=== PATIENT | female | born 1965 ===

== ENCOUNTER 2022-05-11 16:35 | Emergency (ER) | payer OTHER ==
--- NOTE | 2022-05-11 17:20 | Emergency Department Report ---
ED General Adult HPI - General Chief complaint: High BP Stated complaint: HIGH BLOOD PRESSURE Time Seen by Provider: 05/11/22 16:50 Source: patient, RN/MD (notes provided by [facility]), EMS, old records reviewed Mode of arrival: Stretcher Limitations: No Limitations - History of Present Illness Initial comments: 57-year-old female with a past medical history hypertension and diabetes presents from [facility] for treatment for possible clonidine withdrawal. Patient was admitted into [facility] yesterday after transfer from [facility]. Patient apparently has a history of chronic opioid, benzodiazepine, and clonidine issues with repeated hospital visits for hypotension. At [facility] she was experiencing withdrawal symptoms including vomiting, nausea, sleep disturbance, sweats, increased anxiety and headaches. Patient states she received Suboxone and currently feels better without any symptoms of withdrawal. She was transferred due to abnormal vital signs which included BP 203/136, pulse rate 121, respirations 20, temp nine 9.2, and satting 98% on room air as per [facility] transfer form As per [facility] medications include (a.m. meds administered around 10:30 AM) Eliquis 2.5 mg daily. Patient received 1 dose today and it was discontinued Carvedilol 6.25 mg twice daily patient received 1 dose this a.m. and it was discontinued Carvedilol has since been increased to 12.5 mg BID with first dose scheduled this evening Lantus 10 units twice daily (no dose provided today) Patient is on Ativan 1 mg taper for detox (dose received at 10:35 and 13:15) Robaxin-750mg TID one does this am provided Omeprazole daily next Patient is on several as needed. medications including but not limited to Suboxone 2 mg - 0.5 mg every 6 as needed opiate withdrawal Clonidine 0.1 mg as needed BP 160/90 Max 3 doses per day (patient received 1 dose yesterday morning at 1145 and 1 dose this morning at 10:23 AM) As needed insulin and Ativan please refer to the MAR for additional as needed medications Patient denies currently taking Eliquis or being prescribed Eliquis in the past patient denies history of PE/DVT. - Related Data Allergies Allergy/AdvReac Type Severity Reaction Status Date / Time NSAIDS (Non-Steroidal AdvReac Unknown Verified 05/11/22 16:46 Anti-Inflamma ED Review of Systems ROS: Stated complaint: HIGH BLOOD PRESSURE Other details as noted in HPI ED Physical Exam - General Limitations: No Limitations ED Course Vital Signs 05/11/22 05/11/22 05/11/22 16:44 17:23 17:58 Temperature 98.5 F Pulse Rate 120 H 119 H Respiratory 18 Rate Blood Pressure 140/80 145/69 [Left] O2 Sat by Pulse 98 99 Oximetry 05/11/22 05/11/22 05/11/22 20:10 21:53 22:29 Temperature Pulse Rate 110 H 103 H 104 H Respiratory 18 19 Rate Blood Pressure 149/71 149/83 [Left] O2 Sat by Pulse 99 95 Oximetry 05/11/22 05/11/22 23:38 23:39 Temperature Pulse Rate 110 H 82 Respiratory 20 Rate Blood Pressure 111/92 [Left] O2 Sat by Pulse 100 Oximetry - Reevaluation(s) Reevaluation #1: 05/11/22 23:20 Patient with extended ED stay. Receiving IV fluids for dehydration. Patient is a very difficult IV stick and only had a 24-gauge catheter placed with slow administration of IV fluids. She was able to tolerated p.o. hydration. Several nurses attempted IV access include IV ultrasound-guided access without success. At this time patient is starting to exhibit more signs of agitation and is requesting additional Suboxone. She was medicated with Suboxone, carvedilol, Lopressor, and Zofran. Patient denies chest pain or shortness of breath. ED Medical Decision Making - Lab Data Result diagrams: 05/11/22 17:27 05/11/22 22:36 Lab Results 05/11/22 05/11/22 05/11/22 Range/Units 17:14 17:27 17:27 WBC 7.1 (4.5-11.0) K/mm3 RBC 5.57 H (3.65-5.03) M/mm3 Hgb 15.9 H (10.1-14.3) gm/dl Hct 48.3 H (30.3-42.9) % MCV 87 (79-97) fl MCH 29 (28-32) pg MCHC 33 (30-34) % RDW 13.8 (13.2-15.2) % Plt Count 420 (140-440) K/mm3 Lymph % (Auto) 21.6 (13.4-35.0) % [place] % (Auto) 4.2 (0.0-7.3) % Eos % (Auto) 0.2 (0.0-4.3) % Baso % (Auto) 1.3 (0.0-1.8) % Lymph # (Auto) 1.5 (1.2-5.4) K/mm3 [place] # (Auto) 0.3 (0.0-0.8) K/mm3 Eos # (Auto) 0.0 (0.0-0.4) K/mm3 Baso # (Auto) 0.1 (0.0-0.1) K/mm3 Seg Neutrophils % 72.7 H (40.0-70.0) % Seg Neutrophils # 5.2 (1.8-7.7) K/mm3 PT 13.4 (12.2-14.9) Sec. INR 0.90 (0.87-1.13) Sodium (137-145) mmol/L Potassium (3.6-5.0) mmol/L Chloride (98-107) mmol/L Carbon Dioxide (22-30) mmol/L Anion Gap mmol/L BUN (7-17) mg/dL Creatinine (0.6-1.2) mg/dL Estimated GFR ml/min BUN/Creatinine Ratio % Glucose (65-100) mg/dL POC Glucose 103 (70-105) mg/dL Calcium (8.4-10.2) mg/dL Total Bilirubin (0.1-1.2) mg/dL AST (5-40) units/L ALT (7-56) units/L Alkaline Phosphatase (35-129) units/L Total Protein (6.3-8.2) g/dL Albumin (3.9-5) g/dL Albumin/Globulin Ratio % TSH (0.270-4.200) mlU/mL Free T4 (0.76-1.46) ng/dL Urine Color (Yellow) Urine Turbidity (Clear) Urine pH (5.0-7.0) Ur Specific [place] (1.003-1.030) Urine Protein (Negative) mg/dL Urine Glucose (UA) (Negative) mg/dL Urine Ketones (Negative) mg/dL Urine Blood (Negative) Urine Nitrite (Negative) Urine Bilirubin (Negative) Urine Ictotest (Negative) Urine Urobilinogen (<2.0) mg/dL Ur Leukocyte Esterase (Negative) Urine WBC (Auto) (0.0-6.0) /HPF Urine RBC (Auto) (0.0-6.0) /HPF U Epithel Cells (Auto) (0-13.0) /HPF Urine Bacteria (Auto) (Negative) /HPF Hyaline Casts /LPF Urine Mucus /HPF Urine Yeast (Budding) /HPF Urine Opiates Screen Urine Methadone Screen Ur Barbiturates Screen Ur Phencyclidine Scrn Ur Amphetamines Screen U Benzodiazepines Scrn Urine Cocaine Screen U Marijuana (THC) Screen Drugs of Abuse Note Hepatitis A IgM Ab (NonReactive) Hep Bs Antigen (Negative) Hep B Core IgM Ab (NonReactive) Hepatitis C Antibody (NonReactive) 05/11/22 05/11/22 05/11/22 Range/Units 17:27 17:28 22:36 WBC (4.5-11.0) K/mm3 RBC (3.65-5.03) M/mm3 Hgb (10.1-14.3) gm/dl Hct (30.3-42.9) % MCV (79-97) fl MCH (28-32) pg MCHC (30-34) % RDW (13.2-15.2) % Plt Count (140-440) K/mm3 Lymph % (Auto) (13.4-35.0) % [place] % (Auto) (0.0-7.3) % Eos % (Auto) (0.0-4.3) % Baso % (Auto) (0.0-1.8) % Lymph # (Auto) (1.2-5.4) K/mm3 [place] # (Auto) (0.0-0.8) K/mm3 Eos # (Auto) (0.0-0.4) K/mm3 Baso # (Auto) (0.0-0.1) K/mm3 Seg Neutrophils % (40.0-70.0) % Seg Neutrophils # (1.8-7.7) K/mm3 PT (12.2-14.9) Sec. INR (0.87-1.13) Sodium 137 (137-145) mmol/L Potassium 5.5 H 5.1 H (3.6-5.0) mmol/L Chloride 99.9 (98-107) mmol/L Carbon Dioxide 22 (22-30) mmol/L Anion Gap 21 mmol/L BUN 20 H (7-17) mg/dL Creatinine 1.4 H (0.6-1.2) mg/dL Estimated GFR 39 ml/min BUN/Creatinine Ratio 14 % Glucose 116 H (65-100) mg/dL POC Glucose (70-105) mg/dL Calcium 9.9 (8.4-10.2) mg/dL Total Bilirubin 0.40 (0.1-1.2) mg/dL AST 63 H (5-40) units/L ALT 111 H (7-56) units/L Alkaline Phosphatase 401 H (35-129) units/L Total Protein 9.1 H (6.3-8.2) g/dL Albumin 4.9 (3.9-5) g/dL Albumin/Globulin Ratio 1.2 % TSH 1.560 (0.270-4.200) mlU/mL Free T4 1.02 (0.76-1.46) ng/dL Urine Color (Yellow) Urine Turbidity (Clear) Urine pH (5.0-7.0) Ur Specific [place] (1.003-1.030) Urine Protein (Negative) mg/dL Urine Glucose (UA) (Negative) mg/dL Urine Ketones (Negative) mg/dL Urine Blood (Negative) Urine Nitrite (Negative) Urine Bilirubin (Negative) Urine Ictotest (Negative) Urine Urobilinogen (<2.0) mg/dL Ur Leukocyte Esterase (Negative) Urine WBC (Auto) (0.0-6.0) /HPF Urine RBC (Auto) (0.0-6.0) /HPF U Epithel Cells (Auto) (0-13.0) /HPF Urine Bacteria (Auto) (Negative) /HPF Hyaline Casts /LPF Urine Mucus /HPF Urine Yeast (Budding) /HPF Urine Opiates Screen Urine Methadone Screen Ur Barbiturates Screen Ur Phencyclidine Scrn Ur Amphetamines Screen U Benzodiazepines Scrn Urine Cocaine Screen U Marijuana (THC) Screen Drugs of Abuse Note Hepatitis A IgM Ab (NonReactive) Hep Bs Antigen (Negative) Hep B Core IgM Ab (NonReactive) Hepatitis C Antibody (NonReactive) 05/11/22 05/11/22 05/11/22 Range/Units Unknown Unknown Unknown WBC (4.5-11.0) K/mm3 RBC (3.65-5.03) M/mm3 Hgb (10.1-14.3) gm/dl Hct (30.3-42.9) % MCV (79-97) fl MCH (28-32) pg MCHC (30-34) % RDW (13.2-15.2) % Plt Count (140-440) K/mm3 Lymph % (Auto) (13.4-35.0) % [place] % (Auto) (0.0-7.3) % Eos % (Auto) (0.0-4.3) % Baso % (Auto) (0.0-1.8) % Lymph # (Auto) (1.2-5.4) K/mm3 [place] # (Auto) (0.0-0.8) K/mm3 Eos # (Auto) (0.0-0.4) K/mm3 Baso # (Auto) (0.0-0.1) K/mm3 Seg Neutrophils % (40.0-70.0) % Seg Neutrophils # (1.8-7.7) K/mm3 PT (12.2-14.9) Sec. INR (0.87-1.13) Sodium (137-145) mmol/L Potassium (3.6-5.0) mmol/L Chloride (98-107) mmol/L Carbon Dioxide (22-30) mmol/L Anion Gap mmol/L BUN (7-17) mg/dL Creatinine (0.6-1.2) mg/dL Estimated GFR ml/min BUN/Creatinine Ratio % Glucose (65-100) mg/dL POC Glucose (70-105) mg/dL Calcium (8.4-10.2) mg/dL Total Bilirubin (0.1-1.2) mg/dL AST (5-40) units/L ALT (7-56) units/L Alkaline Phosphatase (35-129) units/L Total Protein (6.3-8.2) g/dL Albumin (3.9-5) g/dL Albumin/Globulin Ratio % TSH (0.270-4.200) mlU/mL Free T4 (0.76-1.46) ng/dL Urine Color [place] (Yellow) Urine Turbidity Cloudy (Clear) Urine pH 5.0 (5.0-7.0) Ur Specific [place] 1.034 H (1.003-1.030) Urine Protein 100 mg/dl (Negative) mg/dL Urine Glucose (UA) Neg (Negative) mg/dL Urine Ketones 20 (Negative) mg/dL Urine Blood Neg (Negative) Urine Nitrite Neg (Negative) Urine Bilirubin Mod (Negative) Urine Ictotest Not confirmed (Negative) Urine Urobilinogen 4.0 (<2.0) mg/dL Ur Leukocyte Esterase Neg (Negative) Urine WBC (Auto) 6.0 (0.0-6.0) /HPF Urine RBC (Auto) 3.0 (0.0-6.0) /HPF U Epithel Cells (Auto) 24.0 H (0-13.0) /HPF Urine Bacteria (Auto) 1+ (Negative) /HPF Hyaline Casts 2 /LPF Urine Mucus 1+ /HPF Urine Yeast (Budding) Few /HPF Urine Opiates Screen Presumptive negative Urine Methadone Screen Presumptive negative Ur Barbiturates Screen Presumptive negative Ur Phencyclidine Scrn Presumptive negative Ur Amphetamines Screen Presumptive negative U Benzodiazepines Scrn Presumptive positive Urine Cocaine Screen Presumptive negative U Marijuana (THC) Screen Presumptive negative Drugs of Abuse Note Disclamer Hepatitis A IgM Ab Non-reactive (NonReactive) Hep Bs Antigen Non-reactive (Negative) Hep B Core IgM Ab Non-reactive (NonReactive) Hepatitis C Antibody Non-reactive (NonReactive) - EKG Data -: EKG Interpreted by Ct EKG shows normal: sinus rhythm, ST-T waves (no stemi) Rate: tachycardia (114) - EKG Data When compared to previous EKG there are: previous EKG unavailable - Radiology Data Radiology results: report reviewed CHEST 2 VIEWS INDICATION / CLINICAL INFORMATION: htn tachycardia. FINDINGS: SUPPORT DEVICES: None. HEART / MEDIASTINUM: No significant abnormality. LUNGS / PLEURA: No significant pulmonary or pleural abnormality. No pneumothorax. ADDITIONAL FINDINGS: No significant additional findings. IMPRESSION: 1. No acute findings. Abdominal ultrasound limited INDICATION: Elevated LFTs FINDINGS: The liver appears heterogeneous. The spleen is enlarged and 12 cm craniocaudal. Within the spleen there is partial visualization of a heterogeneous structure measuring 5.6 x 7.4 cm. The aorta appears normal in size. There is no intraextra hepatic biliary dilatation. Both kidneys are grossly unremarkable. The pancreas is poorly identified from overlying bowel gas IMPRESSION: Splenomegaly with evidence of adjacent 7 x 6 cm lesion. This mass is ultimately nonspecific and CT of the abdomen and pelvis with IV contrast is suggested for further evaluation. CT ABDOMEN AND PELVIS WITHOUT CONTRAST INDICATION / CLINICAL INFORMATION: elevated lft, possible splenic mass. TECHNIQUE: Axial CT images were obtained through the abdomen and pelvis without IV contrast. All CT scans at this location are performed using CT dose reduction for ALARA by means of automated exposure control. COMPARISON: Abdominal ultrasound dated 05/11/2022 FINDINGS: LOWER CHEST: No significant abnormality. AORTA / ARTERIES: Mild atherosclerotic calcification without acute abnormality. IVC / VEINS: No significant abnormality. LYMPH NODES: No significant adenopathy. COLON: No significant abnormality. APPENDIX: No significant abnormality. STOMACH / SMALL BOWEL: No significant abnormality. PERITONEUM: No free fluid. No free air. No fluid collection. LIVER: No significant abnormality. GALLBLADDER: Cholecystectomy. BILE DUCTS: No significant abnormality. PANCREAS: No significant abnormality. SPLEEN: No significant abnormality. ADRENALS: No significant abnormality. RIGHT KIDNEY / URETER: No significant abnormality. LEFT KIDNEY / URETER: No significant abnormality. URINARY BLADDER: No significant abnormality. REPRODUCTIVE ORGANS: Uterus is absent. No significant adnexal abnormality. SKELETAL SYSTEM: Scattered degeneration. ADDITIONAL FINDINGS: Scattered subcutaneous emphysema along the right hip/right anterior abdominal wall, likely secondary to injection. IMPRESSION: 1. No evidence of splenic mass. Normal unenhanced appearance of the liver. 2. Scattered subcutaneous emphysema along the right hip/right anterior abdominal wall, likely secondary to injection, correlate clinically. - Medical Decision Making 57-year-old female presents to the hospital from care home for symptoms of clonidine withdrawal including hypertension and tachycardia. Patient blood pressure was normal upon arrival with tachycardia noted. Labs revealed dehydration given BUN to creatinine ratio and high specific gravity on UA result. Patient was noted to have elevated LFTs without acute abnormality to the liver on ultrasound or CT. Possible splenic mass identified on ultrasound not present with CAT scan. Acute hepatitis panel negative mild elevation in potassium noted with decreased potassium with repeat blood work. Patient provided Suboxone for recurrence of withdrawal symptoms, beta-blockers for tachycardia, Zofran for nausea, and will be encouraged to continue p.o. hydration. Critical Care Time: No Critical care attestation.: If time is entered above; I have spent that time in minutes in the direct care of this critically ill patient, excluding procedure time. ED Disposition Clinical Impression: Substance abuse, Dehydration, Elevated LFTs Disposition: 01 HOME / SELF CARE / HOMELESS Is pt being admited?: No Does the pt Need Aspirin: No Condition: Stable Instructions: Substance Use Disorder, Dehydration, Adult, [id number] Additional Instructions: Continue your current medication as prescribed. Drink plenty of fluids to help with dehydration. Follow-up with your doctor or doctor/clinic provided. Return if symptoms worsen as indicated by your discharge instructions. Referrals: PRIMARY CARE, [Referring] - 3-5 Days [facility] [Provider Group] - 3-5 Days Time of Disposition: 23:48
[2022-05-11] MEDS ORDERED: SODIUM CHLORIDE 0.9% 1000 ML 1,000 ML IV ONE ×2 (18:17→18:57)
[2022-05-11 18:35] LABS: Basophils # (Auto) 0.1 K/mm3 (0.0-0.1); Basophils % (Auto) 1.3 % (0.0-1.8); Eosinophils % (Auto) 0.2 % (0.0-4.3); Hematocrit 48.3 % (30.3-42.9); Hemoglobin 15.9 gm/dl (10.1-14.3); Lymphocytes # (Auto) 1.5 K/mm3 (1.2-5.4); Lymphocytes % (Auto) 21.6 % (13.4-35.0); Mean Corpuscular HGB Conc 33 % (30-34); Mean Corpuscular Volume 87 fl (79-97); Monocytes # (Auto) 0.3 K/mm3 (0.0-0.8); Monocytes % (Auto) 4.2 % (0.0-7.3); Platelet Count 420 K/mm3 (140-440); Red Blood Count 5.57 M/mm3 (3.65-5.03); Red Cell Distribution Width 13.8 % (13.2-15.2)
[2022-05-11 18:44] LABS: Albumin 4.9 g/dL (3.9-5); Calcium 9.9 mg/dL (8.4-10.2); INR 0.9 (0.87-1.13)
[2022-05-11 18:50] LABS: Free T4 (Free Thyroxine) 1.02 ng/dL (0.76-1.46)
--- NOTE | 2022-05-11 19:00 | XRay Report ---
CHEST 2 VIEWS INDICATION / CLINICAL INFORMATION: htn tachycardia. FINDINGS: SUPPORT DEVICES: None. HEART / MEDIASTINUM: No significant abnormality. LUNGS / PLEURA: No significant pulmonary or pleural abnormality. No pneumothorax. ADDITIONAL FINDINGS: No significant additional findings. IMPRESSION: 1. No acute findings. Signer Name: Eugenio Eddy MD Signed: 05/11/2022 6:56 PM Workstation Name: [email or web address]
[2022-05-11 19:59] LABS: Bilirubin,Urine MOD (Negative); Blood,Urine NEG (Negative); Color,Urine Amber (Yellow)
[2022-05-11 20:00] LABS: Amphetamine Screen,Urine PRESUMPTIVE NEGATIVE; Benzodiazepines Screen,Urine PRESUMPTIVE POSITIVE; Cannabinoid Screen,Urine PRESUMPTIVE NEGATIVE; Cocaine Screen,Urine PRESUMPTIVE NEGATIVE; Methadone Screen,Urine PRESUMPTIVE NEGATIVE; Opiate Screen,Urine PRESUMPTIVE NEGATIVE
[2022-05-11 20:05] LABS: Bacteria,Urine 1+ /HPF (Negative); Hyaline Casts,Urine 2 /LPF; Mucus,Urine 1+ /HPF
[2022-05-11 20:08] LABS: Hepatitis B Surface Antigen Non-Reactive (Negative); Hepatitis C Virus Antibody Non-Reactive (NonReactive); Ictotest,Urine Not Confirmed (Negative)
--- NOTE | 2022-05-11 20:42 | Ultrasound Report ---
Abdominal ultrasound limited INDICATION: Elevated LFTs FINDINGS: The liver appears heterogeneous. The spleen is enlarged and 12 cm craniocaudal. Within the spleen there is partial visualization of a heterogeneous structure measuring 5.6 x 7.4 cm. The aorta appears normal in size. There is no intraextra hepatic biliary dilatation. Both kidneys are grossly unremarkable. The pancreas is poorly identified from overlying bowel gas IMPRESSION: Splenomegaly with evidence of adjacent 7 x 6 cm lesion. This mass is ultimately nonspecif ic and CT of the abdomen and pelvis with IV contrast is suggested for further evaluation. Signer Name: Eugenio Eddy MD Signed: 05/11/2022 8:37 PM Workstation Name: [email or web address]
[2022-05-11] MEDS ORDERED: ACETAMINOPHEN 325 MG TAB PO ONE (21:48)
[2022-05-11] MEDS ORDERED: carvediloL 6.25 MG TAB PO ONE (21:48)
--- NOTE | 2022-05-11 22:35 | Cat Scan Report ---
CT ABDOMEN AND PELVIS WITHOUT CONTRAST INDICATION / CLINICAL INFORMATION: elevated lft, possible splenic mass. TECHNIQUE: Axial CT images were obtained through the abdomen and pelvis without IV contrast. All CT scans at this location are performed using CT dose reduction for ALARA by means of automated exposure control. COMPARISON: Abdominal ultrasound dated 05/11/2022 FINDINGS: LOWER CHEST: No significant abnormality. AORTA / ARTERIES: Mild atherosclerotic calcification without acute abnormality. IVC / VEINS: No significant abnormality. LYMPH NODES: No significant adenopathy. COLON: No significant abnormality. APPENDIX: No significant abnormality. STOMACH / SMALL BOWEL: No significant abnormality. PERITONEUM: No free fluid. No free air. No fluid collection. LIVER: No significant abnormality. GALLBLADDER: Cholecystectomy. BILE DUCTS: No significant abnormality. PANCREAS: No significant abnormality. SPLEEN: No significant abnormality. ADRENALS: No significant abnormality. RIGHT KIDNEY / URETER: No significant abnormality. LEFT KIDNEY / URETER: No significant abnormality. URINARY BLADDER: No significant abnormality. REPRODUCTIVE ORGANS: Uterus is absent. No significant adnexal abnormality. SKELETAL SYSTEM: Scattered degeneration. ADDITIONAL FINDINGS: Scattered subcutaneous emphysema along the right hip/right anterior abdominal wa ll, likely secondary to injection. IMPRESSION: 1. No evidence of splenic mass. Normal unenhanced appearance of the liver. 2. Scattered subcutaneous emphysema along the right hip/right anterior abdominal wall, likely seconda ry to injection, correlate clinically. Signer Name: Darryl Kaiser DO Signed: 05/11/2022 10:30 PM Workstation Name: [id number]
[2022-05-11] MEDS ORDERED: METOPROLOL TARTRATE 5 MG/5 ML INJ IV ONE (23:17)
[2022-05-11] MEDS ORDERED: ONDANSETRON 4 MG/2 ML INJ IV ONE (23:19)
[2022-05-11] MEDS ORDERED: BUPRENORPHINE 2 MG/NALOXONE 0.5 MG FILM SL ONE (23:57)
[2022-05-12 01:19] VITALS: BP 133/77
--- NOTE | 2022-05-12 10:50 | Electrocardiograph Report ---
[facility] Test Date: 2022-05-11 Test Time: 17:16:21 Pat Name: VERA CARDOZA Department: Room: Gender: F Insurance Verification Rep: JULIANA : 1965 Requested By: ISAI RUBI Order Number: [id number] Reading MD: Te Weeks Measurements Intervals [place] Rate: 114 P: 44 IA: 148 QRS: 56 QRSD: 73 T: 55 QT: 322 QTc: 443 Interpretive Statements Sinus tachycardia No previous ECG available for comparison Electronically Signed On 05-12-2022 10:49:28 EDT by Te Weeks
== END 2022-05-12 01:16 | disposition home or self-care (01) ==
LOC: ED 16:35
DX: E86.0 Dehydration (principal); F19.10 Other psychoactive substance abuse, uncomplicated; R74.01 Elevation of levels of liver transaminase levels; R10.9 Unspecified abdominal pain; Z88.6 Allergy status to analgesic agent
CPT/HCPCS: 36415; 71046; 74176; 76700; 80053; 80074; 80307; 81001; 82962; 84132; 84439; 84443; 85025; 85610; 93005; 96361; 96374; 96375; 99285; J2405; J7030